=== PATIENT | male | born 2000 | race Asian ===

== ENCOUNTER 2020-02-02 19:29 | Emergency (ER) | payer MEDICAID ==
[~2020-02-02] VITALS: Ht 185.4 cm; Wt 102.3 kg
[2020-02-02] MEDS ORDERED: LIDOCAINE 1% 10 ML VIAL ID ONE (19:30)
[2020-02-02] MEDS ORDERED: PERTUSS(ACELL),DIPH,TET VAC/PF 0.5 ML VIAL IM ONE (19:30)
[2020-02-02 20:05] VITALS: BP 128/69
[2020-02-02] MEDS ORDERED: BACITRACIN 0.9 GM PACKET OINTMENT TP ONE (21:00)
== END 2020-02-02 21:19 | disposition home or self-care (01) ==
LOC: EMS 19:29
DX: S61.211A Laceration without foreign body of left index finger without damage to nail, initial encounter (principal); W45.8XXA Other foreign body or object entering through skin, initial encounter; Y93.89 Activity, other specified; Y92.89 Other specified places as the place of occurrence of the external cause; Y99.8 Other external cause status
CPT/HCPCS: 12001; 90471; 90715; 99283; J3490

== ENCOUNTER 2020-02-12 11:33 | Emergency (ER) | payer MEDICAID ==
[~2020-02-12] VITALS: Ht 188 cm; Wt 93.2 kg
[2020-02-12 11:35] VITALS: BP 128/59
== END 2020-02-12 14:20 | disposition home or self-care (01) ==
LOC: EMS 11:35
DX: S61.211D Laceration without foreign body of left index finger without damage to nail, subsequent encounter (principal); X58.XXXD Exposure to other specified factors, subsequent encounter
CPT/HCPCS: Z7502